=== PATIENT | female | born 1945 | race Caucasian/White ===

== ENCOUNTER 2022-07-22 10:55 | Outpatient (CLI) | payer OTHER | END 2022-07-22 10:56 | disposition home or self-care (01) | LOC: CSHMAMMO 10:55 | PROVIDERS: ATTEND Internal Medicine | DX: Z12.31 Encounter for screening mammogram for malignant neoplasm of breast (principal); Z13.820 Encounter for screening for osteoporosis; Z78.0 Asymptomatic menopausal state; M81.0 Age-related osteoporosis without current pathological fracture; Z91.89 Other specified personal risk factors, not elsewhere classified | CPT/HCPCS: 77063; 77067; 77080 ==

== ENCOUNTER 2023-06-06 13:09 | Outpatient (CLI) | payer OTHER | END 2023-06-06 13:10 | disposition home or self-care (01) | LOC: CSHCT 13:09 | PROVIDERS: ATTEND Internal Medicine Critical Care Medicine | DX: R91.1 Solitary pulmonary nodule (principal); R91.8 Other nonspecific abnormal finding of lung field | CPT/HCPCS: 71250 ==